=== PATIENT | male | born 1985 | race Caucasian/White ===

== ENCOUNTER 2022-02-01 12:37 | Emergency (ER) | payer OTHER, SELFPAY ==
[2022-02-01 12:53] VITALS: BP 126/90; PULSE 80; RESP 14; TEMP 36.4; O2SAT 99
[2022-02-01] MEDS: MECLIZINE HCL 25 MG TABLET PO (13:24)
[2022-02-01] MEDS: SCOPOLAMINE 1.5 MG PATCH TRANSDERM (13:44)
[2022-02-01] MEDS: SODIUM CHLORIDE 0.9% IV 1,000 ML 999 ML IV CONT (14:15)
[2022-02-01] MEDS: PROCHLORPERAZINE EDISYLATE 10 MG/2 ML VIAL IV PUSH (14:15)
[2022-02-01] MEDS: diphenhydrAMINE HCl INJ 50 MG/ML VIAL 25 MG IV PUSH (14:16)
[2022-02-01] MEDS: KETOROLAC 30 MG/ML VIAL (*BKC) 15 MG IV PUSH (14:16)
--- NOTE | 2022-02-01 21:29 | ED.GENADULT ---
HPI - General Adult General Chief complaint: Dizziness Stated complaint: ringing right ear, dizziness Time Seen by Provider: 02/01/22 13:19 History of Present Illness HPI narrative: This is a 36-year-old male presenting ED with a chief complaint of tinnitus and vertigo. 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 He then started experience a hum which progressed to a high pitched ringing noise. He then developed vertigo. The vertigo is trigger bowl when he stands up and moves his head. It is associated with some nausea and vomiting. patient denies double vision, dysarthria, dysphagia, or dystaxia. He denies numbness tingling or weakness to any extremity Related Data Home Medications Medication Instructions Recorded Confirmed atenolol 25 mg tablet mg 02/01/22 naproxen 500 mg tablet mg 02/01/22 sumatriptan succinate 50 mg tablet mg PO 02/01/22 Allergies Allergy/AdvReac Type Severity Reaction Status Date / Time Penicillins Allergy Hives Verified 02/01/22 13:09 Review of Systems Review of Systems: CONSTITUTIONAL: Denies night sweats. EYES: No eye pain ENT: Denies rhinorrhea CARDIOVASCULAR: Denies palpitations RESPIRATORY: Denies hemoptysis GASTROINTESTINAL: Denies hematemesis GENITOURINARY: Denies hematuria. SKIN: Denies rash MUSCULOSKELETAL: Denies myalgia. NEUROLOGIC: Denies weakness. PSYCHIATRIC: Denies delusions Exam Narrative: APPEARANCE: No apparent distress. Head atraumatic. EYES: PERRLA/EOMI, NOSE: Normal no drainage NECK: Supple, Trachea midline RESPIRATORY: CTAB, No increased work of breathing. CARDIOVASCULAR: S1S2 appreciated ABDOMINAL: Soft, nontender, nondistended, MUSCULOSKELETAl: No obvious deformities NEURO: Alert. Cranial nerves 2-12 grossly intact. Sensation light touch, motor function cerebellar function intact for 4 extremities. Gait exam was normal. Test of skew is negative, nystagmus at rest was negative. Head impulse was indeterminate SKIN:: Warm, dry. Normal color PSYCHIATRIC: Normal affect Course Vital Signs Vital signs: Vital Signs Temperature 97.6 F 02/01/22 12:53 Pulse Rate 80 02/01/22 12:53 Respiratory Rate 14 02/01/22 12:53 Blood Pressure 126/90 02/01/22 12:53 Pulse Oximetry 99 02/01/22 12:53 Oxygen Delivery Room Air 02/01/22 12:53 Temperature 97.6 F 02/01/22 12:53 Pulse Rate 80 02/01/22 12:53 Respiratory Rate 14 02/01/22 12:53 Blood Pressure 126/90 02/01/22 12:53 Pulse Oximetry 99 02/01/22 12:53 Oxygen Delivery Room Air 02/01/22 12:53 Medical Decision Making MDM Narrative Medical decision making narrative: this is a 36-year-old male presenting ED with tinnitus and vertigo. Differential includes BPPV, vestibular neuritis, labyrinthitis posterior stroke. Given the patient's young age, lack of risk factors and lack of other neurologic findings find it unlikely to be a posterior circulation stroke patient be treated with meclizine and scopolamine. Patient is also complaining of his migraine headache. He will be treated with Compazine and Benadryl which should also help his vertigo. Upon re-evaluation the patient states he is feeling better. He is able to stand and walk without difficulty. The patient we discharged home with meclizine and scopolamine. Vital Signs Vital Signs: Vital Signs Temperature 97.6 F 02/01/22 12:53 Pulse Rate 80 02/01/22 12:53 Respiratory Rate 14 02/01/22 12:53 Blood Pressure 126/90 02/01/22 12:53 Pulse Oximetry 99 02/01/22 12:53 Oxygen Delivery Room Air 02/01/22 12:53 Temperature 97.6 F 02/01/22 12:53 Pulse Rate 80 02/01/22 12:53 Respiratory Rate 14 02/01/22 12:53 Blood Pressure 126/90 02/01/22 12:53 Pulse Oximetry 99 02/01/22 12:53 Oxygen Delivery Room Air 02/01/22 12:53 Discharge Plan Discharge Clinical Impression: Vestibular dizziness involving right inner ear
== END 2022-02-01 16:19 | disposition home or self-care (01) ==
PROVIDERS: Emergency Provider Emergency Medicine
DX: H81.8X1 Other disorders of vestibular function, right ear (principal)
CPT/HCPCS: 96361; 96374; 96375; 99284; A9270; J0780; J1200; J1885; J7030

== ENCOUNTER 2022-03-18 21:50 | Emergency (ER) | payer OTHER, SELFPAY ==
[2022-03-18 22:06] VITALS: BP 160/90; PULSE 113; RESP 15; TEMP 36.4; O2SAT 98
[2022-03-19 00:18] LABS: Influenza A QL RT-PCR Negative (Negative); Influenza B QL RT-PCR Negative (Negative); RSV RNA, RT-PCR Negative (Negative); SARS-CoV-2 RNA PCR Negative
--- NOTE | 2022-03-19 00:47 | ED.URI ---
HPI - URI/Sore Throat General Chief Complaint: Upper Respiratory Infection Stated Complaint: ST, earache Time Seen by Provider: 03/19/22 00:29 History of Present Illness HPI Narrative: 37-year-old male presents the emergency room for evaluation of a sore throat, bilateral ear pain, and a painful cough. Patient admits to having COVID 2 weeks ago and states his been experiencing symptoms since. He was seen at his primary care physician's office earlier today was placed on codeine cough syrup, Sudafed and Flonase. Patient states he has had 1 dose of Sudafed and Flonase and does not feel any better. Was unable to get through codeine cough syrup filled today due to short supply. Patient denies fevers Related Data Home Medications Medication Instructions Recorded Confirmed atenolol 25 mg tablet mg 02/01/22 naproxen 500 mg tablet mg 02/01/22 sumatriptan succinate 50 mg tablet mg PO 02/01/22 Allergies Allergy/AdvReac Type Severity Reaction Status Date / Time Penicillins Allergy Hives Verified 02/01/22 13:09 Review of Systems Review of Systems: CONSTITUTIONAL: Denies fever, chills, or sweats. EYES: Denies visual changes, redness, or discharge. ENT: Reports rhinorrhea, congestion, sore throat, and otalgia. CARDIOVASCULAR: Denies chest pain, palpitations, or edema. RESPIRATORY: Reports painful cough GASTROINTESTINAL: Denies abdominal pain, nausea, vomiting, or diarrhea. GENITOURINARY: Denies dysuria or hematuria. SKIN: Denies rash or itching. MUSCULOSKELETAL: Denies back pain, joint pain, or myalgia. NEUROLOGIC: Denies headache, numbness, dizziness, or weakness. PSYCHIATRIC: Denies anxiety or depression. Exam Narrative: GENERAL: Well-appearing, well-nourished, no physical limitations, and in no acute distress. HEAD: Normocephalic, atraumatic. EYES: Conjunctivae normal, PERRLA and EOMI. ENT: External nose normal, Nares clear, no rhinorrhea or epistaxis. Mucous membranes moist. Oropharynx without tonsillar hypertrophy exudate or other lesions. External ears normal, bilateral TMs normal bilaterally with clear effusion NECK: Supple. No meningeal signs. No adenopathy or masses. No carotid bruits or JVD CHEST: Clear to auscultation. No respiratory distress. No wheezes rales or rhonchi. Chest wall tenderness. HEART: Regular rate and rhythm. No murmur heard. Normal peripheral pulses. EXTREMITIES: Normal range of motion. No edema. No clubbing or cyanosis SKIN: Warm, dry, no rash. No noted wounds NEURO: No focal deficits. Alert and oriented x3. MAEW. CN's II-XI intact bilaterally, normal gait PSYCH: Cooperative. Normal mood and affect. Course Vital Signs Vital signs: Vital Signs Temperature 36.4 C 03/18/22 22:06 Pulse Rate 113 H 03/18/22 22:06 Respiratory Rate 15 03/18/22 22:06 Blood Pressure 160/90 H 03/18/22 22:06 Pulse Oximetry 98 03/18/22 22:06 Oxygen Delivery Room Air 03/18/22 22:06 Temperature 36.4 C 03/18/22 22:06 Pulse Rate 113 H 03/18/22 22:06 Respiratory Rate 15 03/18/22 22:06 Blood Pressure 160/90 H 03/18/22 22:06 Pulse Oximetry 98 03/18/22 22:06 Oxygen Delivery Room Air 03/19/22 00:59 MDM - URI/Sore Throat Lab Data Labs: Lab Results 03/18/22 03/19/22 Range/Units 23:27 00:57 Influenza A (RT-PCR) Negative (Negative) Influenza B (RT-PCR) Negative (Negative) RSV (RT-PCR) Negative (Negative) SARS-CoV-2 RNA (RT-PCR) Negative Grp A Beta Strep Ag Pending Discharge Plan Discharge Clinical Impression: Upper respiratory infection Patient Disposition: Home, Self-Care Condition: Stable Instructions: Antibiotic Form, Viral Syndrome (ED), Cold Symptoms (ED) Prescriptions: New prednisone 20 mg tablet 40 mg PO DAILY 5 Days Qty: 10 0RF No Action atenolol 25 mg tablet sumatriptan succinate 50 mg tablet PO naproxen 500 mg tablet meclizine 25 mg tablet 25 mg PO TID 14 Days Q
[2022-03-19] MEDS: guaiFENesin/CODEINE (*CRX) 200/20 MG 10 ML SYRUP PO (01:03)
== END 2022-03-19 02:21 | disposition home or self-care (01) ==
PROVIDERS: Emergency Provider Nurse Practitioner Family
DX: J06.9 Acute upper respiratory infection, unspecified (principal); Z20.822 Contact with and (suspected) exposure to COVID-19
CPT/HCPCS: 87081; 87637; 87880; 96372; 99283; A9270; J1100